=== PATIENT | male | born 1955 | race Two or more races ===

== ENCOUNTER 2022-08-03 07:58 | Emergency (ER) | payer MEDICARE, MEDICAID ==
[~2022-08-03] VITALS: Ht 170.2 cm; Wt 72.5 kg
[2022-08-03 08:56] VITALS: BP 148/89
[2022-08-03] MEDS ORDERED: TRAM-297 PO (08:58)
[2022-08-03] MEDS ORDERED: HYDROcodone-ACET 5/325MG TAB PO ONE (09:00)
== END 2022-08-03 09:14 | disposition home or self-care (01) ==
LOC: ER 07:58
DX: M19.011 Primary osteoarthritis, right shoulder (principal); M77.8 Other enthesopathies, not elsewhere classified; E11.9 Type 2 diabetes mellitus without complications; I10 Essential (primary) hypertension
CPT/HCPCS: 73030; 93005